=== PATIENT | female | born 1975 | race Two or more races ===

== ENCOUNTER 2019-05-05 15:12 | Inpatient (IN) | payer OTHER ==
[~2019-05-05] VITALS: Ht 170.2 cm; Wt 82.8 kg
[2019-05-05] VITALS (14 sets, daily range): BP systolic 83–110; BP diastolic 45–64
[2019-05-05] MEDS ORDERED: IOHEXOL 300 MG/ML 100ML VIAL. ONE (15:15)
[2019-05-05] MEDS ORDERED: LIDOCAINE 1% PF 2 ML VIAL. ONE (15:15)
[2019-05-05] MEDS ORDERED: HEPARIN for IV BOLUS 10,000 UNIT/10 ML VIAL. ONE (15:17)
[2019-05-05] MEDS ORDERED: NITROGLYCERIN 200 MCG/2 ML SYRINGE FOR CATH/VASC LAB. ONE (15:17)
[2019-05-05] MEDS ORDERED: VERAPAMIL 5 MG/2 ML VIAL. ONE (15:17)
[2019-05-05] MEDS ORDERED: fentaNYL PF VIAL 100 MCG/2 ML VIAL ONE (15:17)
[2019-05-05] MEDS ORDERED: fentaNYL PF VIAL 100 MCG/2 ML VIAL IV ONE (15:45)
[2019-05-05] MEDS ORDERED: NITROGLYCERIN 200 MCG/2 ML SYRINGE FOR CATH/VASC LAB. IART ONE (15:45)
[2019-05-05] MEDS ORDERED: VERAPAMIL 5 MG/2 ML VIAL. IART ONE (15:45)
[2019-05-05] MEDS ORDERED: LIDOCAINE 1% PF 2 ML VIAL. INJ ONE (15:45)
[2019-05-05] MEDS ORDERED: HEPARIN for IV BOLUS 10,000 UNIT/10 ML VIAL. IART ONE (15:45)
[2019-05-05] MEDS ORDERED: IOHEXOL 300 MG/ML 100ML VIAL. IART ONE (15:45)
--- NOTE | 2019-05-05 16:24 | CARD ---
MR#: [id number] Date of Study: 05/05/2019 Ordering Physician: GABRIELA BUTLER, Referring Physician: GABRIELA BUTLER, Tech: DANYELLE COLEMAN RTR APPROVED REPORT Technologist: DANYELLE COLEMAN RTR Nurse: Yvonne Shen R.N. Procedure(s) performed: Left heart catheterization, selective coronary angiography and left ventricul ography via right transradial approach MODERATE SEDATION TIME:20 MIN FLUORO TIME: 3.3 MIN DOSE: 30.9 GYCM2 CONTRAST: 74CC OMNI INDICATION The indication(s) include : unstable angina . CSHA Clinical Frailty Scale CSHA Clinical Frailty Scale: Managing Well Heart Failure Heart Failure: No PROCEDURE NARRATIVE After explaining the risks, benefits and alternative options, informed consent was obtained from arnav ent. Patient was brought to the cardiac [facility] and right wrist was prepped and draped in the usual fashion after confirming a positive modified Avtar's test. Arterial access was obtained in the righ t radial artery and a [place] sheath was inserted. [place] Thomas catheter was used to perform abhay ective angiography of the left and right coronary arteries. 6 [place] pigtail catheter was used to pe rform left ventriculography. Patient tolerated the procedure well. Hemostasis was achieved using TR band. There were no immediate complications. The following findings were noted. FINDINGS 1. Hemodynamics: Left ventricular end-diastolic pressure of 20 mmHg. No pullback gradient across th e aortic valve. 2. Left ventriculography: Normal left ventricle systolic function with ejection fraction estimated at 60%. No significant mitral regurgitation seen. 3. Coronary angiography: a. The left main coronary artery arose from the left sinus of Valsalva, gave rise to the left anteri or descending and left circumflex arteries and did not show any significant stenosis. b. The left anterior descending artery did not show any significant stenosis. c. The left circumflex artery did not show any significant stenosis. d. The right coronary artery was a large and dominant vessel arising from the right sinus of Valsalv a that did not show any significant stenosis. Conclusion 1. No significant coronary artery disease 2. Normal left ventricle systolic function with ejection fraction estimated at 60%. Signed by : Gabriela Butler, Electronically Approved : 05/05/2019 16:24:18
--- NOTE | 2019-05-05 16:42 | PDOC ---
MODERATE SEDATION ASSESSMENT RISKS/ALTERNATIVES Risks/Alternatives Risks and alternatives of this type of sedation and procedure discussed with: RISK/ALTERNATIVES: Patient H & P ON CHART H & P H & P on chart and reviewed for co-morbid conditions and appropriate labs. H&P ON CHART: Yes STATUS PREG STATUS ASSESSED: N/A MEDS/ALLERGIES REVIEWED Meds/Allergies Reviewed Medications and Allergies including time and route of recently administered narcotics and sedatives. MEDS/ALLERGIES REVIEWED: Yes ASA RATING ASA RATING: II AIRWAY ASSESSMENT Airway Assessment Airway patency, oral function limitations, presence of caps, crowns, dentures, partials, and ability to extend neck assessed. AIRWAY ASSESSMENT: Yes MALLAMPATI SCORE MALLAMPATI SCORE: II PRE-SEDATION ASSESSMENT PRE-SEDATION ASSESSMENT: Yes GABRIELA BUTLER MD May 05, 2019 16:42
[2019-05-05] MEDS ORDERED: 0.9 % SODIUM CHLORIDE 10 ML DISP.SYRIN. IV PRN (16:45)
[2019-05-05] MEDS ORDERED: NITROGLYCERIN SUBLINGUAL 0.4 MG BOTTLE OF 25. SL PRN (16:45)
[2019-05-05] MEDS ORDERED: TOPI200T25 PO (16:53)
[2019-05-05] MEDS ORDERED: ONDA8TAB9 PO (16:53)
[2019-05-05] MEDS ORDERED: PRAM0.255 PO (16:53)
[2019-05-05] MEDS ORDERED: CITA10TA8 PO (16:53)
[2019-05-05] MEDS ORDERED: LINZESS145 MCG PO (16:53)
[2019-05-05] MEDS ORDERED: DEXT30TA2 PO (16:53)
[2019-05-05] MEDS ORDERED: MAGN500C10 PO (16:56)
[2019-05-05] MEDS ORDERED: SUMAtriptan SUCC 6 MG/0.5 ML VIAL. SQ PRN (17:15)
[2019-05-05] MEDS ORDERED: ACETAMINOPHEN 325 MG TABLET. PO PRN (17:15)
[2019-05-05] MEDS ORDERED: ONDANSETRON ODT 4 MG TAB.RAPDIS. PO PRN (17:30)
[2019-05-05] MEDS ORDERED: PRAMIPEXOLE 0.25 MG TABLET. PO SCH (21:00)
[2019-05-05] MEDS ORDERED: CITALOPRAM 10 MG TABLET. PO SCH (21:30)
[2019-05-06 03:00] VITALS: BP 76/45
[2019-05-06 07:00] VITALS: BP 86/51
[2019-05-06] MEDS ORDERED: LUBIPROSTONE 24 MCG CAPSULE PO SCH (08:00)
[2019-05-06] MEDS ORDERED: TOPIRAMATE 100 MG TABLET. PO SCH (09:00)
[2019-05-06] MEDS ORDERED: CITALOPRAM 10 MG TABLET. PO SCH (09:00)
[2019-05-06] MEDS ORDERED: MAGNESIUM OXIDE 400 MG TABLET PO SCH (09:00)
[2019-05-06] MEDS ORDERED: DEXTROAMPHETAMINE PO SCH (09:00)
[2019-05-06] MEDS ORDERED: AMPHETAMINE PO SCH (09:00)
[2019-05-06 10:55] VITALS: BP 78/36
[2019-05-06 10:58] VITALS: BP 118/57
[2019-05-06 11:00] VITALS: BP 78/36
[2019-05-06 11:02] VITALS: BP 104/60
--- NOTE | 2019-05-06 11:46 | SSS ---
ADMIT DATE: 05/06/2019 HISTORY OF PRESENT ILLNESS: The patient is a 43-year-old female patient who was transferred from [facility] where she was admitted with recurrent bouts of chest pain. She did have 3 sets of cardiac enzymes that were negative; however, because of the typical presentation, a decision was made to transfer her to [facility] and she underwent cardiac catheterization and she was found to have no significant coronary artery disease, normal left ventricular systolic function, and ejection fraction estimated 60%. She did have an episode of hypotension immediately after the procedure, likely due to sedation. I did check her orthostatics this morning, and there is no evidence of postural hypotension. She was able to stand and walk without difficulty, and a decision was made to discharge her home. PHYSICAL EXAMINATION: GENERAL: When I saw her today, she looked well and was clearly in no apparent respiratory distress. No pallor, jaundice, cyanosis, or thyromegaly. No jugular venous distension. No limb edema. VITAL SIGNS: Her heart rate was 60, blood pressure was 102/70, temperature was 98, respiratory rate was 16, and oxygen saturation was 98%. HEAD, EYES, EARS, NOSE, AND THROAT: Normocephalic and atraumatic. NECK: Supple. HEART: Normal first and second heart sounds. No gallop or murmur. CHEST: Clear to auscultation. No crepitation or rhonchi. ABDOMEN: Distended, soft, and nontender. NEUROLOGIC: She is awake, alert, and responding appropriately. All cranial nerves intact. EXTREMITIES: She moves extremities without difficulty. She has no lab work done this morning. She was discharged home to continue on her home medications that include citalopram hydrobromide 30 mg once a day, Adderall 30 mg once a day, Linzess 145 mcg every other day, magnesium oxide for milk of magnesia 30 mL p.o. daily p.r.n., ondansetron for Zofran 8 mg every 8 hours, Mirapex 0.25 mg at bedtime, and topiramate for Topamax 200 mg daily. FINAL DISCHARGE DIAGNOSES: 1. Chest pain with normal coronary arteries on cardiac catheterization. 2. Migraine headache. 3. Attention-deficit hyperactivity disorder. 4. Depression. TYLOR SMITH MD DR: Kamaljit JOB#: [id number] / [id number]
== END 2019-05-06 11:50 | disposition home or self-care (01) | DRG 287 ==
LOC: 2 NORTH 15:12
PROVIDERS: ADMIT Internal Medicine; ATTEND Internal Medicine
PROC: 4A023N7 Measurement of Cardiac Sampling and Pressure, Left Heart, Percutaneous Approach (ICD-10-PCS; principal; 2019-05-05)
PROC: B2111ZZ Fluoroscopy of Multiple Coronary Arteries using Low Osmolar Contrast (ICD-10-PCS; 2019-05-05)
PROC: B2151ZZ Fluoroscopy of Left Heart using Low Osmolar Contrast (ICD-10-PCS; 2019-05-05)
DX: R07.89 Other chest pain (principal); F32.9 Major depressive disorder, single episode, unspecified; F90.9 Attention-deficit hyperactivity disorder, unspecified type; G43.909 Migraine, unspecified, not intractable, without status migrainosus
CPT/HCPCS: 93458; 99152; C1769; C1892; J1644; J3010; J3490; Q0162; Q9967; 99285-25; G0378